=== PATIENT | male | born 1975 | race Caucasian/White ===

== ENCOUNTER 2016-11-17 12:11 | Emergency (ER) | payer BC ==
[~2016-11-17] VITALS: Ht 175.3 cm; Wt 66.0 kg
[2016-11-17 13:29] LABS: CHLORIDE 107 mEq/L (99-109); POTASSIUM 4.6 mEq/L (3.7-5.4); SODIUM 140 mEq/L (136-147)
[2016-11-17 13:31] LABS: GLUCOSE 103 mg/dL (70-99)
[2016-11-17 13:33] LABS: ANION GAP 10 MEQ/L (2-14)
[2016-11-17 13:35] LABS: GFR ESTIMATE (CALCULATED) > 59 mL/min/
[2016-11-17 13:36] LABS: UREA NITROGEN (BUN) 9 mg/dL (9-23)
[2016-11-17 13:43] LABS: HEMATOCRIT 45.7 % (38.0-50.0); MCH 30.6 PG (29.0-34.0); MCHC 33.9 G/DL (30.0-36.0); MCV 90.3 FL (86-99); MEAN PLAT.VOLUME 10.4 uM^3 (9.0-12.4); PLATELET COUNT 280 K/uL (156-360); RBC DIS.WIDTH-CV 12.7 % (11.8-14.6); RBC DIS.WIDTH-SD 42.5 % (39-53); RED BLOOD COUNT 5.06 M/uL (4.00-5.50); WHITE BLOOD COUNT 12.4 K/uL (4.1-10.2)
[2016-11-17 14:06] LABS: TROP-I INTERPRETATION NEGATIVE; TROPONIN-I < 0.01 ng/mL (0.0-0.30)
[2016-11-17 14:10] LABS: TOTAL BILIRUBIN 0.4 mg/dL (0.0-1.0)
[2016-11-17 14:11] LABS: ALKALINE PHOSPHATASE 92 IU/L (3-129)
[2016-11-17 14:13] LABS: DIRECT BILIRUBIN 0.2 mg/dL (0.0-0.3)
[2016-11-17 14:14] LABS: LIPASE 29 U/L (1.0-51.0)
[2016-11-17] MEDS ORDERED: NEXIUM20 MG PO (15:27)
[2016-11-17 16:04] LABS: TROP-I INTERPRETATION NEGATIVE; TROPONIN-I < 0.01 ng/mL (0.0-0.30)
[2016-11-17 16:16] VITALS: BP 141/96
== END 2016-11-17 16:18 | disposition home or self-care (01) ==
LOC: EME 12:11
PROVIDERS: Nurse Practitioner Family
DX: R07.89 Other chest pain (principal); K21.9 Gastro-esophageal reflux disease without esophagitis; F17.200 Nicotine dependence, unspecified, uncomplicated; D72.829 Elevated white blood cell count, unspecified
CPT/HCPCS: 71020; 80048; 80076; 83690; 84484; 85027; 93005; 99281; 99284